=== PATIENT | male | born 2000 | race Caucasian/White ===

== ENCOUNTER 2023-10-24 01:00 | Day surgery (SDC) | payer BC, SELFPAY ==
[2023-10-17 15:54] VITALS: BMI 38.9
--- NOTE | 2023-10-17 16:01 | PC.NURSE ---
Report to the Outpatient Waiting Room, entrance under the green pavilion located off [facility], at time 06:30am on date 10-24-23. Planned Procedure Time: 08:30am. Time changes happen often and if your time is changed the preop area will call you the afternoon before. - You and your visitor will be asked to self-screen and do not enter if you have any COVID symptoms. - A mask is optional within the hospital at this time. - No food or drink from midnight until time of surgery Take the following medications with a SIP of water the morning of surgery: N/A DO NOT STOP ANY OF YOUR OTHER PRESCRIPTION MEDICATIONS PRIOR TO SURGERY?EXCEPT THE FOLLOWING Medications to discontinue per physician N/A Please no make-up, nail spanish, hairspray, perfume, deodorant, or body powder the day of surgery. No jewelry (including any body piercings) or valuables the day of surgery, leave them at home. Please take a shower or bath the night before, or the morning of, surgery with an antibacterial soap. Wear comfortable, loose fitting clothing. - Jewelry must be removed prior to entering the operating room. Rings and piercings that are not removed may be cut off. - The hospital will not accept responsibility for valuables. - Please leave all valuables, including medications, at home the day of surgery. If you are going home after surgery, a licensed local company tanker driver must drive you home. - NO public transportation without another adult if you receive anesthesia. - We recommend that an adult stay with you for 24 hours following discharge. - We also recommend that you do not drive, make important decision, drink alcoholic beverages, or take any drugs that were not prescribed by your health care provider for at least 24 hours after your discharge time. Follow any additional instructions given to you from your surgeon. If you or anyone in your household have experienced Covid symptoms in the past week, please notify your surgeon or the nurse liaison at the phone number below for possible testing. Telephone instructions given to PATIENT and asked if any additional questions and then verbalized understanding. Patient advised to call surgeon office or pre surgery nurse liaison [phone] if any additional questions.
[2023-10-24] VITALS (9 sets, daily range): BP systolic 123–146; BP diastolic 74–87; PULSE 73–85; RESP 16–18; TEMP 36.1–36.5; O2SAT 98–100
[2023-10-24] MEDS: LACTATED RINGERS 1,000 ML 30 ML IV CONT ×2 (06:40→11:29)
--- NOTE | 2023-10-24 07:10 | WPDHPUPDATE1 ---
History and Physical Update Update Date/Time: 10/24/23 07:10 Patient seen and examined in pre-operative holding area. No interval change in medical history or symptoms. Patient remembers previous discussion of benefits and alternatives to procedure. Continues to desire to proceed with bilateral mastectomy for gynecomastia. I reviewed the risks including but not limited to bleeding ,infection, asymmetry, undesireable cosmetic appearance, partial/total skin/nipple loss, no change or worsening of symptoms, change in sensation. I discussed the possible use of assistants and their level of participation in the case. Patient stated understanding and signed the consent form wishing to proceed
--- NOTE | 2023-10-24 07:16 | W.PM.PROC2 ---
Procedure Note - Detailed Date of Procedure 10/24/23 Pre-op Diagnosis gynecomastia Post-op Diagnosis Same Procedure Performed b/l male mastectomy Surgeon Chuck Steve MD Client Executive Ebony Ahmadi PA-C Anesthesia General Description of Procedure INFORMED CONSENT: The patient was seen and examined and marked in the pre-op area.? The patient signed the consent form. PROCEDURE IN DETAIL:The patient taken back to OR and placed on the table in supine position. Time out performed with anesthesia, surgeon and staff agreeing on patient's name site and surgery to be performed SCDs were placed on the lower extremities and inflated. After general anesthesia was administered the breasts were prepped and draped in sterile fashion First I took my attention to the right breast where I made an incision around the nipple areolar complex with a 15 blade scalpel and then proceeded with de-epithelializing a 12 cm wide inferior pedicle. I made my other skin incisions and elevated skin flaps in ubaldo's plane to expose the breast tissue down to the chest wall. I isolated the nipple on the de-epithleizlized pedicle and proceeded with resecton of 660grams of tissue from the right breast. I irrigated wit normal saline and hemostasis with bovie. I plicated the pedicle with 2-0 vicryl to improve nipple position. THe nipple appeared viable with good cap refill. I proceeded with closing deep tissue and dermis with 2-0 and 3-0 vicryl and 4-0 monocryl for supcutilcular. An incision was made ~2cm above IMF with 15 blade and nipple areolar compelx was broought out and sutured with 3-0 vicryl and 4-0 monocryl. I then took my attention to the left breast where same procedure was performed including de-epithelializing a 12cm wide inferior pedicle flap for the nipple areolar complex, making skin incissons, raising the superior skin flap in ubaldo's plane down to chest wall to exposed breast tissue. After isolating the peicle I resected 545 grams of tissue from the left breast. This yielded a reasonable size and symmetry to the right breast. The nipple appeared viable with good cap refill. I irrigated with normal saline and hemostasis with bovie. I plicated pedicle with 2-0 vicryl to improve nipple placement. The skin flap was closed with 2-0 and 3-0 vicryl and 4-0 monocryl. The nipple was again brought out ~2cm above IMF and measured to be symmetric placement to right side from sternal notch. This was sutured with 3-0 vicryl and 4-0 monocryl. The defect area on both breasts measured 10x18 after skin and breast tissue resection to be closed with the superior skin flap and lateral tissue mobilization. 20cc 1%lido with epi and 0.5% marcaine plain were injected on each side along IMF and anterior axillary line. A dressing of mastisol, steri-strips, 4x4, tegaderm was then applied followed by ABDs and chest binder. The patient was then awaken from anesthesia and transferred to the recovery room in stable condition.? Complications - none EBL- 100cc Disposition - home in stable conditions Ebony Ahmadi PA-C was essential for positioning, retraction, hemostasis, closure and dressing placement [facility] Billing Surgery - Charge Forward: Surgery Billing ([id number],[id number] and [id number],59(x3) and [id number],59 and [id number],59(x3) same codes for ebony with modifier )
--- NOTE | 2023-10-24 08:02 | WPDANESEPPF ---
Anes - Initial Pre Proc Eval Procedure: Operation Date: 10/24/23 08:30 Proposed Procedures p Male Bilateral Mastectomy - Chuck Steve MD Date/Time: 10/24/23 08:02 Surgeon: Chuck Steve MD Pre Op Diagnosis: gynecomastia Patient Data Age: 23 Gender: M Height: 2.01 m Weight: 159.5 kg Last Vital Signs Temp 97.7 F 10/24/23 06:22 Pulse 85 10/24/23 06:22 Resp 18 10/24/23 06:22 BP 129/81 10/24/23 06:22 Pulse Ox 100 10/24/23 06:22 O2 Del Method Room Air 10/24/23 06:22 Allergies Allergy/AdvReac Type Severity Reaction Status Date / Time No Known Allergies Allergy Mild Verified 10/24/23 07:08 Home Medications Medication Instructions Recorded Confirmed Type cephalexin 500 mg capsule 500 mg PO Q8H #21 caps 10/24/23 Rx hydrocodone 5 mg-acetaminophen 325 1 tablet PO Q6H PRN pain #12 tabs 10/24/23 Rx mg tablet Patient hx anesthesia problems: none Family hx anesthesia problems: none Results Review: All pre-operative results and documents have been reviewed as part of the pre-operative evaluation. FORMERLY [facility], [facility] Social History Social History (Updated 07/25/23 @ 14:39 by Lucia Burton MA) Smoking status: Never smoker Tobacco type: e-cigarettes/vaping Smokeless tobacco user: other Second hand tobacco smoke exposure: No Additional smoking assessment comments: oral nicotine pouches Alcohol intake: current Drinks per week: 3 Substance use: current Substance use type: marijuana Other substance usage details: smokes marijuana once a week Lack of Transportation: No Lack of Food: Never True Current Housing: I Have Housing Concerned About Future Housing: No Difficulty Paying Gas/Electric Bills: No Difficulty Paying for Meds: No Currently Unemployed: No Education: High School Diploma/GED Difficulty w/ Childcare or Family Care: No Living arrangements: with family Spiritual care concerns: No Anes - Eval Final PreProcedure Day of Procedure 10/24/23 08:02 Patient weight: morbidly obese Heart: regular rate and rhythm Lungs: clear to auscultation Airway: Mallampati scale class II Neurological: alert and oriented Last oral intake: >/= 8 hours ASA classification: III Emergent: no Anesthetic plan: proceed Anesthesia type and monitoring: general ETT and standard monitoring Results Review: All pre-operative results and documents have been reviewed as part of the pre-operative evaluation. Informed Consent: The patient's anesthetic plan and its attendant risks and benefits were discussed with the patient/family/POA. Questions were solicited and answers provided to the satisfaction of the patient/family/POA.
[2023-10-24] MEDS: ceFAZolin 3 GM/D5W 100 ML 100 ML IVPB (08:28)
[2023-10-24] MEDS: LIDO 1%/EPINEPHRINE 1:100,000 50 ML VIAL 30 ML INFILTRATE (10:55)
[2023-10-24] MEDS: fentaNYL CITRATE INJ (*CRX) 100 MCG/2 ML VIAL 25 MCG IV PUSH ×3 (11:55→12:15)
[2023-10-24] MEDS: oxyCODONE HCL (*CRX) 5 MG TAB IR PO (13:02)
--- NOTE | 2023-10-24 13:54 | SUR.PHASEII ---
Patient stood up from recliner and left side YUKO drain got stuck in recliner and was pulled out. RN called Dr. Steve's office and spoke to CELE Damon and she said it was okay to leave drain out. Just apply 2 more ABD pads on left side and make sure the compression is tight. Right YUKO drain is still intact and to proper suction.
== END 2023-10-24 13:54 | disposition home or self-care (01) ==
PROVIDERS: PCP Pediatrics; Visit Provider Plastic Surgery
PROC: (CPT 19300; principal; 2023-10-24 08:30)
DX: N62 Hypertrophy of breast (principal); F17.290 Nicotine dependence, other tobacco product, uncomplicated; F12.90 Cannabis use, unspecified, uncomplicated; E66.01 Morbid (severe) obesity due to excess calories; Z68.39 Body mass index [BMI] 39.0-39.9, adult
CPT/HCPCS: 19300; 88307; A9270; J0330; J0690; J1100; J1170; J2250; J2405; J2704; J3010; J7120

== ENCOUNTER 2024-11-20 12:37 | Emergency (ER) | payer OTHER, SELFPAY ==
[2024-11-20 12:49] VITALS: BP 119/67; PULSE 73; RESP 16; TEMP 36.2; O2SAT 100
--- NOTE | 2024-11-20 13:19 | ED.URI ---
HPI - URI/Sore Throat General Chief Complaint: Upper Respiratory Infection Stated Complaint: Unable to Swallow Time Seen by Provider: 11/20/24 13:16 Source: patient and RN notes reviewed Mode of arrival: ambulatory Limitations: no limitations History of Present Illness HPI Narrative: 24-year-old male presents concern for 1 day history of sore throat painful swelling. Reports postnasal drainage. Denies headache, runny nose, stuffy nose, body aches, chills, fever, sweats. He denies taking any medications for his symptoms MD elicited complaint: sore throat Related Data Allergies Allergy/AdvReac Type Severity Reaction Status Date / Time No Known Allergies Allergy Mild Verified 03/05/24 15:13 Review of Systems Review of Systems: CONSTITUTIONAL: Denies malaise, chills, sweats, or fever. EYES: Denies visual changes, redness, or discharge. ENT: Denies rhinorrhea, congestion, sinus pain, otalgia. Reports postnasal drainage sore throat. CARDIOVASCULAR: Denies chest pain, palpitations, or edema. RESPIRATORY: Denies cough. Denies dyspnea. GASTROINTESTINAL: Denies abdominal pain, nausea, vomiting, diarrhea SKIN: Denies rash or itching. MUSCULOSKELETAL: Denies myalgia. NEUROLOGIC: Denies headache. All systems reviewed & are unremarkable except as noted in HPI and below PMFSH Social History Social History (Updated 03/05/24 @ 15:15 by Lisa Beach [facility]) Smoking status: Never smoker Tobacco type: e-cigarettes/vaping Smokeless tobacco user: dissolvable tobacco and other Second hand tobacco smoke exposure: No Additional smoking assessment comments: oral nicotine pouches Alcohol intake: current Drinks per week: 3 Substance use: current Substance use type: marijuana Other substance usage details: smokes marijuana once a week Lack of Transportation: No Lack of Food: Never True Current Housing: I Have Housing Concerned About Future Housing: No Difficulty Paying Gas/Electric Bills: No Difficulty Paying for Meds: No Currently Unemployed: No Education: High School Diploma/GED Difficulty w/ Childcare or Family Care: No Living arrangements: with family Spiritual care concerns: No Comments At time of signature, agree with nursing past medical, surgical, social and family history. There is no relevant family history pertinent to the presenting complaint Exam Narrative: GENERAL: Well-appearing, well-nourished, and in no acute distress. HEAD: Normocephalic EYES: PERRLA, conjunctivae clear ENT: Nares clear. Mucous membranes moist. TM pearly taylor with sharp light reflex bilaterally; no tragal tenderness. Oropharynx not erythematous without lesions. Tonsils not enlarged and without exudate, no drooling, no hoarseness, no trismus, uvula midline. NECK: Supple. No lymphadenopathy CHEST: Clear to auscultation, breath sounds equal. No wheezing, rhonchi, rales, or stridor. No respiratory distress, speaks in full sentences. HEART: Regular rate and rhythm. No murmur heard. SKIN: Warm, dry, no rash. NEURO: Alert and oriented x3. PSYCH: Normal mood and affect Course Course Emergency Course: Patient is aware of diagnosis, understands and agrees to treatment plan. Anticipatory guidance given. Patient agrees to follow-up as directed and is aware of reasons to seek care at the emergency department. Portions of this record may have been created with voice recognition software Level of Care: Express Care Visit Vital Signs Vital signs: Vital Signs Temperature 97.2 F L 11/20/24 12:49 Pulse Rate 73 11/20/24 12:49 Respiratory Rate 16 11/20/24 12:49 Blood Pressure 119/67 11/20/24 12:49 Pulse Oximetry 100 11/20/24 12:49 Oxygen Delivery Room Air 11/20/24 12:49 Temperature 97.2 F L 11/20/24 12:49 Pulse Rate 73 11/20/24 12:49 Respiratory Rate 16 11/20/24 12:49 Blood Pressure 119/67 11/20/24 12:49 Pulse Oximetry 100 11/20/24 12:49 Oxygen Delivery Room Air 11/20/24 12:49 Reviewed. MDM - URI/Sore Throat MDM Narrative Medical decision making narrative: Differential diagnosis considered: Olivier virus, strep pharyngitis, allergic rhinitis, upper respiratory tract infection, sinusitis, rhinosinusitis, nasopharyngitis. viral pharyngitis, otitis media, otitis externa, pneumonia, bronchitis, viral cough syndrome, viral syndrome, and influenza. Exam findings show no acute concerns or changes; patient is non-toxic appearing and is in no distress. Patient is appropriate for outpatient treatment and follow-up. Lab Data Attestation: I reviewed the patient's lab results. Critical Care Time Critical Care Time Critical Care Time: No Discharge Plan Discharge Clinical Impression: Pharyngitis Patient Disposition: Home, Self-Care Condition: Stable Instructions: Pharyngitis (ED) Additional Instructions: Your rapid strep swab was negative today at [facility]. A throat culture will be sent to the laboratory for further testing. If the test is positive, you will receive a phone call within 48 hours and an appropriate antibiotic will be initiated at that time. Your symptoms are likely due to a viral illness, which is not treated with antibiotics. Viral symptoms can be present for up to a few weeks. -Alternate Tylenol and Motrin per package directions for fever or pain. -Antihistamine medication such as Benadryl at night and Zyrtec during the day can help improve symptoms. -Eat and drink things that are easy to swallow, like tea or soup, or popsicles to suck on. -Oral rinses such as: Salt water gargles and/or may use topical anesthetic (eg. Chloraseptic spray) or lozenges to relieve dryness or throat pain). -Frequent hand washing or hand field service technician poultry is one of the best ways to prevent spread of infection. -Follow up with primary care provider in 2-3 days if condition is not improving; or seek ER visit if you have trouble breathing, cannot drink enough fluids, have muffled voice, difficulty opening your mouth, or severe swelling. Patient Language: Urdu Prescriptions: New cetirizine-pseudoephedrine [Zyrtec-D] 5-120 mg tablet extended release 12 hr 1 tablet PO Q12H PRN (Reason: nasal congestion) Qty: 12 0RF Follow-up/Referrals: PHYSICIAN,DISINTEGRATOR OPERATOR [Primary Care Provider] - Time of Disposition: 13:26
[2024-11-20 13:42] LABS: EDSTREPNEGPOS1 Negative (Negative)
== END 2024-11-20 13:30 | disposition home or self-care (01) ==
PROVIDERS: Emergency Provider Nurse Practitioner
DX: J02.9 Acute pharyngitis, unspecified (principal); F17.290 Nicotine dependence, other tobacco product, uncomplicated
CPT/HCPCS: 87081; 87880; 99213; G0463

== ENCOUNTER 2024-11-22 11:58 | Emergency (ER) | payer OTHER, SELFPAY ==
[2024-11-22 12:08] VITALS: BP 142/69; PULSE 84; RESP 16; TEMP 36.2; O2SAT 99
--- NOTE | 2024-11-22 12:12 | ED.URI ---
HPI - URI/Sore Throat General Chief Complaint: Upper Respiratory Infection Stated Complaint: sore throat, meds from Wed not helping Time Seen by Provider: 11/22/24 12:12 Source: patient, RN notes reviewed and old records reviewed Mode of arrival: ambulatory Limitations: no limitations History of Present Illness HPI Narrative: Patient presents with complaints of sore throat for 2 days. He was seen and treated at this facility at the onset of his illness. He states that he has not been taking his Zyrtec D properly, has been taking it multiple times per day. He has not been taking any Tylenol or ibuprofen for his pain. He is able to eat. No drooling or stridor Related Data Allergies Allergy/AdvReac Type Severity Reaction Status Date / Time No Known Allergies Allergy Mild Verified 11/22/24 13:24 Review of Systems Review of Systems: All systems reviewed & are unremarkable except as noted in HPI and below Constitutional: Constitutional: Reports no additional constitutional complaints ENT: Reports system reviewed and no additional complaints, except as documented and Reports sore throat Cardiovascular: Cardiovascular: Reports no additional cardiovascular complaints Respiratory: Respiratory: Reports no additional respiratory complaints Gastrointestinal: Gastrointestinal: Reports no additional gastrointestinal complaints [facility] Social History Social History (Updated 03/05/24 @ 15:15 by Lisa Beach [facility]) Smoking status: Never smoker Tobacco type: e-cigarettes/vaping Smokeless tobacco user: dissolvable tobacco and other Second hand tobacco smoke exposure: No Additional smoking assessment comments: oral nicotine pouches Alcohol intake: current Drinks per week: 3 Substance use: current Substance use type: marijuana Other substance usage details: smokes marijuana once a week Lack of Transportation: No Lack of Food: Never True Current Housing: I Have Housing Concerned About Future Housing: No Difficulty Paying Gas/Electric Bills: No Difficulty Paying for Meds: No Currently Unemployed: No Education: High School Diploma/GED Difficulty w/ Childcare or Family Care: No Living arrangements: with family Spiritual care concerns: No Comments At the time of my signature, I reviewed and agree with the nursing past medical, surgical, social, and family history. There is no relevant family history pertinent to the patient complaint. Exam Const: General: cooperative, no acute distress, alert and awake Orientation/consciousness: oriented to person, oriented to place and oriented to time HENMT: Head: normal to inspection Ears: TM's normal bilaterally Mouth: Yes moist mucous membranes Throat: posterior oropharynx normal Resp: Effort & Inspection: normal respiratory effort and able to speak in complete sentences Auscultation: clear to auscultation bilaterally, no crackles, no rales, no rhonchi and no wheezes Cardio: Palpation: normal PMI Rate: regular rate Rhythm: regular rhythm Heart sounds: S1 normal heart sound present and S2 normal heart sound present Neuro: General: oriented to person, oriented to place and oriented to time Cranial nerves: Yes CN's II-XII intact bilaterally Psych: Appearance: grossly normal Thought process: Normal thought process present Insight: Good insight present (Psych) Judgement: Good judgement present (Psych) Course Course Level of Care: Express Care Visit Vital Signs Vital signs: Vital Signs Temperature 97.2 F L 11/22/24 12:08 Pulse Rate 84 11/22/24 12:08 Respiratory Rate 16 11/22/24 12:08 Blood Pressure 142/69 H 11/22/24 12:08 Pulse Oximetry 99 11/22/24 12:08 Oxygen Delivery Room Air 11/22/24 12:08 Temperature 97.2 F L 11/22/24 12:08 Pulse Rate 84 11/22/24 12:08 Respiratory Rate 16 11/22/24 12:08 Blood Pressure 142/69 H 11/22/24 12:08 Pulse Oximetry 99 11/22/24 12:08 Oxygen Delivery Room Air 11/22/24 12:08 Reviewed MDM - URI/Sore Throat MDM Narrative Medical decision making narrative: Negative strep, culture pending. Culture from Monday negative. Patient advised to take medications as prescribed, Tylenol and or ibuprofen per package instructions for pain. Discharge instructions reviewed with patient, as well as provided in writing per nursing staff. The instructions also include specific and strict return/GO TO THE ER as well as f/u information. All questions have been answered, and the patient deny any further questions with discharge and discharge plan. Some parts of this dictation were generated by voice recognition software and may contain typographical and/or grammatical inaccuracies. Differential Diagnosis Differential diagnosis: Likely upper respiratory infection, otitis media, sinusitis and pharyngitis Medical Records Attestation: I reviewed the patient's medical records. Lab Data Attestation: I reviewed the patient's lab results. Discharge Plan Discharge Clinical Impression: Acute sore throat Patient Disposition: Home, Self-Care Condition: Stable Instructions: Antibiotic Form, Cold Symptoms (ED) Additional Instructions: Tylenol and/or ibuprofen per package instructions as needed for pain. Continue Zyrtec per prescriber's instructions Patient Language: Citizen Of [place] Prescriptions: No Action cetirizine-pseudoephedrine [Zyrtec-D] 5-120 mg tablet extended release 12 hr 1 tablet PO Q12H PRN (Reason: nasal congestion) Qty: 12 0RF Follow-up/Referrals: PHYSICIAN,MATERIAL HAULER [Primary Care Provider] - Time of Disposition: 13:35
[2024-11-22 13:29] LABS: EDSTREPNEGPOS1 Negative (Negative)
== END 2024-11-22 13:33 | disposition home or self-care (01) ==
PROVIDERS: Emergency Provider Nurse Practitioner Family
DX: J02.9 Acute pharyngitis, unspecified (principal); F17.290 Nicotine dependence, other tobacco product, uncomplicated; F12.90 Cannabis use, unspecified, uncomplicated
CPT/HCPCS: 87081; 87880; 99213; G0463